=== PATIENT | male | born 1955 | race Caucasian/White ===

== ENCOUNTER → 2016-05-18 | Outpatient (CLI) | payer OTHER ==
[~2016-05-18] MED LIST: ASPI1TAB69 PO; GLUC1000 PO; LANTUS2P SQ; MULT1TAB84 PO; NOVOLOGP2 SQ; PROS5TAB PO; VITACAP7 PO
[2016-05-18 07:33] LABS: ALKALINE PHOSPHATASE 123 U/L (45-117); TOTAL BILIRUBIN ADULT 0.2 MG/DL (0.2-1.0)
[2016-05-18 07:35] LABS: ALT (GPT) 25 U/L (12-78); AST (GOT) 15 U/L (15-37); INDIRECT BILIRUBIN 0.1 MG/DL (0.0-0.8)
== END ==
LOC: CLAB 06:42
PROVIDERS: ATTEND Internal Medicine Hematology & Oncology
DX: C18.0 Malignant neoplasm of cecum (principal)
CPT/HCPCS: 36415; 80076; 82378

== ENCOUNTER → 2016-09-20 | Outpatient (CLI) | payer OTHER | LOC: CLAB 06:37 | PROVIDERS: ATTEND Internal Medicine Hematology & Oncology | DX: C18.0 Malignant neoplasm of cecum (principal) | CPT/HCPCS: 36415; 82378 ==

== ENCOUNTER → 2016-11-06 | Outpatient (CLI) | payer OTHER ==
[~2016-11-06] MED LIST changes: +ASPI81TA11 PO; +MULTTAB67 PO
[2016-11-06 09:33] LABS: AUTOMATED NEUTROPHIL # 5.2 TH/MM3 (1.8-7.7); BASOPHIL % 0.5 % (0.0-2.0); EOSINOPHIL # 0.1 TH/MM3 (0-0.4); EOSINOPHIL % 1.4 % (0.0-4.0); HEMO FLAGS DIFF FINAL; LYMPH % 18.1 % (9.0-44.0); LYMPHOCYTE # 1.3 TH/MM3 (1.0-4.8); MEAN CELL VOLUME 85.3 FL (80.0-100.0); MEAN CORPUSCULAR HEMOGLOBIN 28.8 PG (27.0-34.0); MEAN CORPUSCULAR HGB CONC 33.7 % (32.0-36.0); MONO % 6.8 % (0.0-8.0); NEUT % 73.2 % (16.0-70.0); PLATELET COUNT 256 TH/MM3 (150-450); RED BLOOD COUNT 5.05 MIL/MM3 (4.50-5.90); WHITE BLOOD COUNT 7.2 TH/MM3 (4.0-11.0)
[2016-11-06 09:54] LABS: CHLORIDE 104 MEQ/L (98-107); POTASSIUM 4.2 MEQ/L (3.5-5.1); SODIUM (NA) 136 MEQ/L (136-145)
[2016-11-06 11:28] LABS: ALKALINE PHOSPHATASE 115 U/L (45-117); BLOOD UREA NITROGEN 22 MG/DL (7-18); GLOMERULAR FILTRATION RATE 53 ML/MIN (>89); GLUCOSE,FASTING 281 MG/DL (74-99)
[2016-11-06 11:29] LABS: ALT (GPT) 21 U/L (12-78); AST (GOT) 8 U/L (15-37); TOTAL BILIRUBIN ADULT 0.4 MG/DL (0.2-1.0)
[2016-11-06 11:30] LABS: ANION GAP 9 MEQ/L (5-15); BICARBONATE 23.4 MEQ/L (21.0-32.0)
[2016-11-06 11:31] LABS: HDL CHOLESTEROL 31.6 MG/DL (40.0-60.0); LDL CHOLESTEROL 107 MG/DL (0-99)
[2016-11-06 12:31] LABS: HEMOGLOBIN A1a 1.2 %; HEMOGLOBIN A1b 1.4 %; HEMOGLOBIN Ao 74.3 %; HEMOGLOBIN LA1C 3.6 %; HEMOGLOBIN P3 5.6 %
== END ==
LOC: CLAB 08:56
PROVIDERS: ATTEND Internal Medicine Endocrinology, Diabetes & Metabolism
DX: E78.4 Other hyperlipidemia (principal); I12.9 Hypertensive chronic kidney disease with stage 1 through stage 4 chronic kidney disease, or unspecified chronic kidney disease; N18.3 Chronic kidney disease, stage 3 (moderate); E11.21 Type 2 diabetes mellitus with diabetic nephropathy; E11.22 Type 2 diabetes mellitus with diabetic chronic kidney disease; Z79.4 Long term (current) use of insulin
CPT/HCPCS: 36415; 80053; 80061; 82043; 82248; 83036; 84153; 84443; 85025

== ENCOUNTER → 2016-11-06 | Outpatient (CLI) | payer OTHER ==
--- NOTE | 2016-11-06 13:16 | EKG ---
Date Performed: 11/06/2016 Time Performed: 08:45:11 PTAGE: 61 years EKG: Sinus rhythm NONSPECIFIC ST & T-WAVE ABNORMALITY BORDERLINE ECG PREVIOUS TRACING : 01/25/2016 13.23 Compared to prior tracing no significant change DOCTOR: Sophia Abdalla Interpretating Date/Time 11/06/2016 13:14:32
== END ==
LOC: HCAV 08:34
PROVIDERS: ATTEND Family Medicine
DX: Z00.00 Encounter for general adult medical examination without abnormal findings (principal); R94.31 Abnormal electrocardiogram [ECG] [EKG]
CPT/HCPCS: 93005

== ENCOUNTER → 2017-03-29 | Outpatient (CLI) | payer OTHER ==
[2017-03-29 07:09] LABS: CREATININE RANDOM URINE 87 MG/DL (27-300)
[2017-03-29 07:19] LABS: MICRO ALBUMIN RANDOM URINE RAW 69.5 MG/L (0.0-30.0); MICROALBUMIN/CREAT RATIO RAND 80 MG/G CRE (0-30)
[2017-03-29 07:23] LABS: ALBUMIN 3.5 GM/DL (3.4-5.0); ANION GAP 7 MEQ/L (5-15); AST (GOT) 12 U/L (15-37); BICARBONATE 25.3 MEQ/L (21.0-32.0); BLOOD UREA NITROGEN 27 MG/DL (7-18); CHLORIDE 105 MEQ/L (98-107); CREATININE 1.27 MG/DL (0.60-1.30); GLOMERULAR FILTRATION RATE 58 ML/MIN (>89); GLUCOSE,FASTING 245 MG/DL (74-99); POTASSIUM 4.3 MEQ/L (3.5-5.1); SODIUM (NA) 137 MEQ/L (136-145)
[2017-03-29 07:24] LABS: ALT (GPT) 28 U/L (12-78); CHOLESTEROL 130 MG/DL (120-200); TRIGLYCERIDES 253 MG/DL (42-150)
[2017-03-29 07:32] LABS: ALKALINE PHOSPHATASE 127 U/L (45-117); CHOLESTEROL/ HDL RATIO 4.02 RATIO; FREE T4 1.06 NG/DL (0.76-1.46); HDL CHOLESTEROL 32.3 MG/DL (40.0-60.0); LDL CHOLESTEROL 47 MG/DL (0-99); TOTAL BILIRUBIN ADULT 0.3 MG/DL (0.2-1.0); TOTAL PROTEIN 7.3 GM/DL (6.4-8.2)
[2017-03-29 07:32] LABS: CARCINOEMBRYONIC ANTIGEN 5.5 NG/ML (0.2-5.0)
[2017-03-29 14:20] LABS: HEMOGLOBIN A1C 10.1 % (4.3-6.0); HEMOGLOBIN A1a 1.4 %; HEMOGLOBIN A1b 1.2 %; HEMOGLOBIN F 1.6 %; HEMOGLOBIN LA1C 3.3 %; HEMOGLOBIN P3 5.2 %
== END ==
LOC: CLAB 06:29
DX: C18.0 Malignant neoplasm of cecum (principal); I12.9 Hypertensive chronic kidney disease with stage 1 through stage 4 chronic kidney disease, or unspecified chronic kidney disease; N18.3 Chronic kidney disease, stage 3 (moderate); E11.22 Type 2 diabetes mellitus with diabetic chronic kidney disease; E11.21 Type 2 diabetes mellitus with diabetic nephropathy; E78.2 Mixed hyperlipidemia
CPT/HCPCS: 36415; 80053; 80061; 82043; 82378; 83036; 84439; 84443

== ENCOUNTER 2017-05-19 09:01 | Emergency (ER) | payer OTHER ==
[~2017-05-19] VITALS: Ht 195.6 cm; Wt 150.0 kg
[~2017-05-19 09:01] MED LIST changes: -ASPI1TAB69 PO; -ASPI81TA11 PO; +ASPI81TA23 PO; -MULT1TAB84 PO
[2017-05-19 09:14] VITALS: BP 198/89; PULSE 82; RESP 18; TEMP 98.6; O2SAT 100
[2017-05-19] MEDS ORDERED: INSU1INJ14 SQ (09:25)
[2017-05-19] MEDS ORDERED: LANTUS2P (09:25)
[2017-05-19 09:28] VITALS: BP 177/86; PULSE 68; RESP 18; O2SAT 100
[2017-05-19] MEDS ORDERED: ONDANSETRON HCL 4 MG/2 ML VIAL IV PUSH ONE (10:00)
[2017-05-19] MEDS ORDERED: SODIUM CHLOR 0.9% 1000 ML INJ 1,000 ML IV ONE (10:00)
[2017-05-19] MEDS ORDERED: MORPHINE SULFATE 4 MG/ML INJ IV PUSH ONE (10:00)
[2017-05-19] MEDS ORDERED: SODIUM CHLORIDE 0.9% FLUSH 10 ML FLUSH IVF PRN (10:00)
[2017-05-19 10:24] LABS: AUTOMATED NEUTROPHIL # 8.7 TH/MM3 (1.8-7.7); BASOPHIL % 0.2 % (0.0-2.0); EOSINOPHIL # 0.1 TH/MM3 (0-0.4); EOSINOPHIL % 1.3 % (0.0-4.0); HEMATOCRIT 42.5 % (39.0-51.0); HEMOGLOBIN 14.4 GM/DL (13.0-17.0); LYMPHOCYTE # 1.5 TH/MM3 (1.0-4.8); MEAN CELL VOLUME 86.1 FL (80.0-100.0); MEAN CORPUSCULAR HEMOGLOBIN 29.2 PG (27.0-34.0); MEAN CORPUSCULAR HGB CONC 33.9 % (32.0-36.0); MONO % 5.7 % (0.0-8.0); MONOCYTE # 0.6 TH/MM3 (0-0.9); NEUT % 78.8 % (16.0-70.0); PLATELET COUNT 282 TH/MM3 (150-450); RED BLOOD COUNT 4.93 MIL/MM3 (4.50-5.90); RED CELL DISTRIBUTION WIDTH 13.7 % (11.6-17.2)
--- NOTE | 2017-05-19 10:27 | PD ---
HPI . Flank pain Chief Complaint: Flank/Kidney Pain Time Seen by Provider: 09:49 Travel History International Travel<30 days: No Contact w/Intl Traveler<30days: No Traveled to known affect area: No History of Present Illness HPI Patient presents with a chief complaint of right flank pain. Onset was a couple days ago. Symptoms come and go. The pain is associated with nausea. He denies any urinary tract symptoms. His pain is rated 4/10 with no obvious modifying factors. No previous similar history. PFSH Past Medical History Cancer: Yes (COLON 2014) Cardiovascular Problems: No Diabetes: Yes Patient Takes Glucophage: Yes Diminished Hearing: No Endocrine: No Gastrointestinal Disorders: Yes GERD: Yes Genitourinary: No Hepatitis: No Hiatal Hernia: No Immune Disorder: No Musculoskeletal: No Neurologic: No Psychiatric: No Reproductive: No Respiratory: No Thyroid Disease: No Tetanus Vaccination: Unknown Influenza Vaccination: No Past Surgical History Abdominal Surgery: Yes (HEMICOLECTOMY 2014) AICD: No Cardiac Surgery: No Ear Surgery: No Endocrine Surgery: No Eye Surgery: No Genitourinary Surgery: No Gynecologic Surgery: No Joint Replacement: No Oral Surgery: No Pacemaker: No Thoracic Surgery: No Social History Alcohol Use: No Tobacco Use: No Substance Use: No Allergies-Medications (Allergen,Severity, Reaction): Coded Allergies: No Known Allergies (Unverified Adverse Reaction, Unknown, 05/19/17) Reported Meds & Prescriptions Reported Meds & Active Scripts Active Ibuprofen 800 Mg Tab 800 Mg PO Q8H PRN Flomax (Tamsulosin HCl) 0.4 Mg Cap 0.4 Mg PO HS Phenergan (Promethazine HCl) 25 Mg Tablet 25 Mg PO Q6H PRN Percocet (Oxycodone-Acetaminophen) 5-325 mg Tab 1 Tab PO Q4H PRN Reported Lantus Inj (Insulin Glargine) 100 Unit/Ml Inj Tresiba Flextouch Pen Inj (Insulin Degludec Inj) 300 unit/3 ML Pen 100 Units SQ HS Multiple Vitamin 1 Tab 1 Tab PO DAILY Aspirin EC (Aspirin) 81 Mg Tabdr 81 Mg PO DAILY Glucophage (Metformin HCl) 1,000 Mg Tab 2,000 Mg PO DAILY With a meal Review of Systems Except as stated in HPI: all other systems reviewed are Neg Gastrointestinal: Positive: Nausea, No: Vomiting Genitourinary: Positive: Flank Pain, No: Urgency, Frequency, Dysuria, Hematuria Physical Exam Narrative GENERAL: The patient was talking on his cell phone in no acute distress when I entered the room. SKIN: warm/dry. Normal color and turgor. HEAD: Normocephalic. Atraumatic. EYES: Pupils equal and round. No scleral icterus. No injection or drainage. ENT: No nasal bleeding or discharge. Mucous membranes pink and moist. NECK: Trachea midline. Full range of motion without pain.. CARDIOVASCULAR: Regular rate and rhythm. RESPIRATORY: No accessory muscle use. Clear to auscultation. Breath sounds equal bilaterally. GASTROINTESTINAL: Abdomen soft. Nontender. Bowel sounds present. Nondistended. : No CVA tenderness. MUSCULOSKELETAL: No obvious deformities. NEUROLOGICAL: Awake and alert. No obvious cranial nerve deficits. Motor grossly within normal limits. Normal speech. PSYCHIATRIC: Appropriate mood and affect; insight and judgment normal. Data Data Last Documented VS Vital Signs Date Time Temp Pulse Resp B/P (MAP) Pulse Ox O2 Delivery O2 Flow Rate FiO2 05/19/17 09:30 18 05/19/17 09:28 68 177/86 (116) 100 Room Air 05/19/17 09:14 98.6 Orders Orders Complete Blood Count With Diff (05/19/17 09:52) Comprehensive Metabolic Panel (05/19/17 09:52) Urinalysis - C+S If Indicated (05/19/17 09:52) Ct Abd/Pel W/O Iv Contrast (05/19/17 09:52) Iv Access Insert/Monitor (05/19/17 09:52) Sodium Chloride 0.9% Flush (Ns Flush) (05/19/17 10:00) Ondansetron Inj (Zofran Inj) (05/19/17 10:00) Morphine Inj (Morphine Inj) (05/19/17 10:00) Sodium Chlor 0.9% 1000 Ml Inj (Ns 1000 M (05/19/17 10:00) Labs Laboratory Tests Test 05/19/17 10:00 05/19/17 12:40 White Blood Count 11.0 TH/MM3 Red Blood Count 4.93 MIL/MM3 Hemoglobin 14.4 GM/DL Hematocrit 42.5 % Mean Corpuscular Volume 86.1 FL Mean Corpuscular Hemoglobin 29.2 PG Mean Corpuscular Hemoglobin Concent 33.9 % Red Cell Distribution Width 13.7 % Platelet Count 282 TH/MM3 Mean Platelet Volume 8.0 FL Neutrophils (%) (Auto) 78.8 % Lymphocytes (%) (Auto) 14.0 % Monocytes (%) (Auto) 5.7 % Eosinophils (%) (Auto) 1.3 % Basophils (%) (Auto) 0.2 % Neutrophils # (Auto) 8.7 TH/MM3 Lymphocytes # (Auto) 1.5 TH/MM3 Monocytes # (Auto) 0.6 TH/MM3 Eosinophils # (Auto) 0.1 TH/MM3 Basophils # (Auto) 0.0 TH/MM3 CBC Comment DIFF FINAL Differential Comment Blood Urea Nitrogen 21 MG/DL Creatinine 1.35 MG/DL Random Glucose 93 MG/DL Total Protein 7.4 GM/DL Albumin 3.4 GM/DL Calcium Level 9.1 MG/DL Alkaline Phosphatase 83 U/L Aspartate Amino Transf (AST/SGOT) 20 U/L Alanine Aminotransferase (ALT/SGPT) 31 U/L Total Bilirubin 0.2 MG/DL Sodium Level 140 MEQ/L Potassium Level 4.4 MEQ/L Chloride Level 106 MEQ/L Carbon Dioxide Level 26.8 MEQ/L Anion Gap 7 MEQ/L Estimat Glomerular Filtration Rate 54 ML/MIN Urine Color YELLOW Urine Turbidity CLEAR Urine pH 5.5 Urine Specific [place] 1.016 Urine Protein NEG mg/dL Urine Glucose (UA) NEG mg/dL Urine Ketones NEG mg/dL Urine Occult Blood TRACE Urine Nitrite NEG Urine Bilirubin NEG Urine Urobilinogen LESS THAN 2.0 MG/DL Urine Leukocyte Esterase NEG Urine RBC 2 /hpf Urine WBC 1 /hpf Urine Squamous Epithelial Cells 1 /hpf Urine Mucus FEW /lpf Microscopic Urinalysis Comment CULT NOT INDICATED MDM Medical Decision Making Medical Screen Exam Complete: Yes Emergency Medical Condition: Yes Medical Record Reviewed: Yes (This patient's medical history is significant for colon cancer status post resection and chemotherapy several years ago. Since that time, he has gained a lot of weight. His only other medical problem is diabetes.) Differential Diagnosis Differential diagnosis of flank pain includes but is not limited to kidney stone , pyelonephritis, musculoskeletal pain, PE Narrative Course This patient presents with chief complaint of right flank pain. His pain has come and gone over the course of the last couple of days. He is currently pain- free. He will be evaluated for a possible kidney stone. Last Impressions Abdomen/Pelvis CT 05/19/17 0952 Signed Impressions: Service Date/Time: Friday, May 19, 2017 10:40 - CONCLUSION: 1. 6.5 mm calculus in the mid right ureter causing mild obstructive uropathy. 2. Bilateral nephrolithiasis. 3. Simple left renal cysts. 4. No other significant abnormality. Shreyas Parker MD UA is negative for infection. The patient will be discharged home with prescriptions for Percocet, Phenergan, ibuprofen and Flomax. He will be given a referral to urology. Diagnosis Primary Impression: Flank pain Additional Impression: Kidney stone Patient Instructions: General Instructions, Kidney Stones (DC), Narcotic given in the ED Med/Other Pt SpecificInfo: Prescription(s) given Scripts Ibuprofen (Ibuprofen) 800 Mg Tab 800 MG PO Q8H Y for Pain/Inflammation, #60 TAB 0 Refills Prov: Nikkie Argueta MD 05/19/17 Tamsulosin (Flomax) 0.4 Mg Cap 0.4 MG PO HS for Manage Prostate Problems, #30 CAP 0 Refills Prov: Nikkie Argueta MD 05/19/17 Promethazine (Phenergan) 25 Mg Tablet 25 MG PO Q6H Y for NAUSEA OR VOMITING, #12 TAB 0 Refills Prov: Nikkie Argueta MD 05/19/17 Oxycodone-Acetaminophen (Percocet) 5-325 mg Tab 1 TAB PO Q4H Y for PAIN, #12 TAB 0 Refills Prov: Nikkie Argueta MD 05/19/17 Disposition: 01 DISCHARGE HOME Condition: Stable Nikkie Argueta MD May 19, 2017 10:26
[2017-05-19 10:40] LABS: ALKALINE PHOSPHATASE 83 U/L (45-117); TOTAL BILIRUBIN ADULT 0.2 MG/DL (0.2-1.0); TOTAL PROTEIN 7.4 GM/DL (6.4-8.2)
--- NOTE | 2017-05-19 10:59 | RADRPT ---
EXAM DATE/TIME: 05/19/2017 10:40 [facility] COMPARISON: No previous studies available for comparison. INDICATIONS : Right flank pain. ORAL CONTRAST: No oral contrast ingested. RADIATION DOSE: 19.43 CTDIvol (mGy) ; Patient body habitus MEDICAL HISTORY : Carcinoma, colon. Gastroesophageal reflux disease. Diabetes SURGICAL HISTORY : [place], hossein colectomy ENCOUNTER: Initial ACUITY: 2 days PAIN SCALE: 8/10 LOCATION: Right flank TECHNIQUE: Volumetric scanning of the abdomen and pelvis was performed. Using automated exposure control and ad justment of the mA and/or kV according to patient size, radiation dose was kept as low as reasonably achievable to obtain optimal diagnostic quality images. DICOM format image data is available electro nically for review and comparison. FINDINGS: LOWER LUNGS: The visualized lower lungs are clear. LIVER: Homogeneous density without lesion. There is no dilation of the biliary tree. No calcified gallston es. SPLEEN: Normal size without lesion. PANCREAS: Within normal limits. KIDNEYS: Mild hydronephrosis is identified on the right. There is a 6.5 mm calculus in the mid right ureter wi th proximal mild hydroureter. A 3.5 mm calculus is identified in the mid to upper pole of the right k idney. A 4 cm cyst is noted in the upper pole of left kidney. The left renal collecting system is unrem arkable. 1-2 mm calculus is identified in the lower pole. There is no evidence of obstructive uropath y. ADRENAL GLANDS: A 1.4 cm nodule is identified in the left adrenal gland. Right adrenal is normal. VASCULAR: There is no aortic aneurysm. BOWEL/MESENTERY: The stomach, small bowel, and colon demonstrate no acute abnormality. There is no free intraperitone al air or fluid. ABDOMINAL WALL: Within normal limits. RETROPERITONEUM: There is no lymphadenopathy. BLADDER: No wall thickening or mass. REPRODUCTIVE: Within normal limits. INGUINAL: There is no lymphadenopathy or hernia. MUSCULOSKELETAL: Degenerative changes of the lumbar spine are noted. CONCLUSION: 1. 6.5 mm calculus in the mid right ureter causing mild obstructive uropathy. 2. Bilateral nephrolithiasis. 3. Simple left renal cysts. 4. No other significant abnormality. Shreyas Parker MD on May 19, 2017 at 10:52 Board Certified Radiologist. This report was verified electronically.
[2017-05-19 11:10] LABS: ALBUMIN 3.4 GM/DL (3.4-5.0); ALT (GPT) 31 U/L (12-78); AST (GOT) 20 U/L (15-37); BICARBONATE 26.8 MEQ/L (21.0-32.0); BLOOD UREA NITROGEN 21 MG/DL (7-18); CALCIUM 9.1 MG/DL (8.5-10.1); CHLORIDE 106 MEQ/L (98-107); CREATININE 1.35 MG/DL (0.60-1.30); GLOMERULAR FILTRATION RATE 54 ML/MIN (>89); GLUCOSE,RANDOM 93 MG/DL (74-106); SODIUM (NA) 140 MEQ/L (136-145)
[2017-05-19] MEDS ORDERED: TAMS5CAP PO (11:19)
[2017-05-19] MEDS ORDERED: IBUP1TAB7 PO (11:19)
[2017-05-19] MEDS ORDERED: PERC5TAB12 PO (11:19)
[2017-05-19] MEDS ORDERED: PROM25TA10 PO (11:19)
[2017-05-19 13:20] LABS: BILIRUBIN, URINE NEG (NEG); BLOOD, URINE TRACE (NEG); GLUCOSE,URINE NEG (NEG); KETONE, URINE NEG (NEG); MUCUS URINE FEW /lpf (OCC); NITRITE,URINE NEG (NEG); PH, URINE 5.5 (5.0-8.5); SQUAMOUS EPITHELIAL CELL URINE 1 /hpf (0-5); URINE COLOR YELLOW (YELLW/STRAW); URINE LEUKOCYTE ESTERASE NEG (NEG)
== END 2017-05-19 13:28 | disposition home or self-care (01) ==
LOC: NEPC 09:01
DX: N20.0 Calculus of kidney (principal); E11.9 Type 2 diabetes mellitus without complications; Z79.4 Long term (current) use of insulin
CPT/HCPCS: 74176; 80053; 81001; 85025; 96360; 96361; 99284; J2405; J7030

== ENCOUNTER → 2017-07-03 | Outpatient (CLI) | payer OTHER ==
[~2017-07-03] MED LIST changes: +IBUP1TAB7 PO; +INSU1INJ14 SQ; +LANTUS2P; -LANTUS2P SQ; -NOVOLOGP2 SQ; +PERC5TAB12 PO; +PROM25TA10 PO; -PROS5TAB PO; +TAMS5CAP PO; -VITACAP7 PO
[2017-07-03 07:25] LABS: ALBUMIN 3.5 GM/DL (3.4-5.0); AST (GOT) 26 U/L (15-37); BICARBONATE 25.7 MEQ/L (21.0-32.0); BLOOD UREA NITROGEN 28 MG/DL (7-18); CALCIUM 9.6 MG/DL (8.5-10.1); CHLORIDE 107 MEQ/L (98-107); CREATININE 1.48 MG/DL (0.60-1.30); GLOMERULAR FILTRATION RATE 48 ML/MIN (>89); GLUCOSE,FASTING 102 MG/DL (74-99); SODIUM (NA) 141 MEQ/L (136-145)
[2017-07-03 07:26] LABS: ALT (GPT) 31 U/L (12-78)
[2017-07-03 07:28] LABS: ALKALINE PHOSPHATASE 103 U/L (45-117); TOTAL BILIRUBIN ADULT 0.3 MG/DL (0.2-1.0); TOTAL PROTEIN 7.1 GM/DL (6.4-8.2)
[2017-07-03 16:38] LABS: HEMOGLOBIN A1C 7.4 % (4.3-6.0)
== END ==
LOC: CLAB 06:33
PROVIDERS: ATTEND Internal Medicine Endocrinology, Diabetes & Metabolism
DX: E11.21 Type 2 diabetes mellitus with diabetic nephropathy (principal); E78.2 Mixed hyperlipidemia; I10 Essential (primary) hypertension
CPT/HCPCS: 36415; 80053; 83036